=== PATIENT | male | born 1940 | race Caucasian/White ===

== ENCOUNTER → 2018-09-01 | Outpatient (CLI) | payer OTHER ==
[~2018-09-01] MED LIST: IOPAMIDOL (ISOVUE 370) 75 ML BTL IV ONE
== END ==
LOC: FIMAGING 10:10
PROVIDERS: ATTEND Internal Medicine
DX: R42 Dizziness and giddiness (principal)
CPT/HCPCS: 70450; Q9967; 82565-PO

== ENCOUNTER → 2018-09-01 | Outpatient (CLI) | payer OTHER ==
--- NOTE | 2018-09-01 15:59 | ECHO ---
[email or web address] [address] [address] Main: [phone] Fax: Transthoracic Echocardiogram Name: DANII YI MR#: [id number] Study Date: 09/01/2018 Study Time: 01:59 PM Date of : 1940 Age: 78 year(s) Height: 180.3 cm (71 in.) Weight: 83.92 kg (185 lb.) BSA: 2.04 m2 Gender: Male Examination: Echo Indication: Cerebrovascular: prior CVA Image Quality: Contrast: Requested by: Guy Mcfadden BP: 118 mmHg/72 mmHg Heart Rate: Rhythm: Normal sinus rhythm Indication: Cerebrovascular: prior CVA Procedure Staff Digital Cartographer: Lloyd George RDCS Reading Physician: Colton Ruiz MD Requesting Provider: Conclusions: Normal size left ventricle. Global hypercontractility of the left ventricle. EF is 73 %. Grade 1 diastolic dysfunction (abnormal relaxation). The mitral valve is normal in appearance. Trivial mitral valve regurgitation. The aortic valve is tri-leaflet. Mild aortic cusp calcification is noted. There is no significant aortic valve regurgitation. No aortic valve stenosis is present. The pulmonary artery pressure is normal. No old studies for comparison. Measurements: Chambers Valvular Assessment AV/MV Valvular Assessment TV/PV Normal Normal Normal Name Value Range Name Value Range Name Value Range Ao Mouna (MM): 2.8 cm (2.2 cm-3.7 AV Vmax: 1.38 m/s (1 m/s-1.7 TR Vmax: 2.69 mm/s ( - ) cm) m/s) TR PGmax: 29 mmHg ( - ) IVSd (2D): 0.8 cm (0.6 cm-1.1 AV maxP mmHg ( - ) syst. PAP: 34 mmHg ( - ) cm) AV meanP mmHg ( - ) PV Vmax: 1.13 m/s (0.6 m/s-0.9 LVDd (2D): 4.6 cm (4.2 cm-5.9 MARYJANE (VTI): 3.7 cm ( - ) m/s) cm) MV E Vmax: 0.63 m/s ( - ) PV PGmax: 5 mmHg ( - ) LVDs (2D): 2.7 cm (2.1 cm-4 MV A Vmax: 0.81 m/s ( - ) cm) MV E/A: 0.78 ( - ) LVPWd (2D): 0.9 cm (0.6 cm-1 cm) LVOTd 2.1 cm 2.1 cm mm LVEF (2D): 73 (>=54 %) Patient: DANII YI Study Date: 09/01/2018 Page 1 of 2 01:59 PM Continued Measurements: Chambers Valvular Assessment AV/MV Valvular Assessment TV/PV Name Value Name Value Name Value LADs Lon.9 cm MV E' Septal: 0.05 m/s CVP (est.): 5 mmHg LA Area: 12.6 cm2 MV E/E' Septal: 13.20 LA Volume: 34 ml MV E/E' Lateral: 7.90 LA Volume Index: 16.7 ml/m2 Findings: Left Ventricle: Normal size left ventricle. No LV hypertrophy. Global hypercontractility of the left ventricle. EF is 73 %. No regional wall motion abnormality. Grade 1 diastolic dysfunction (abnormal relaxation). Right Ventricle: Normal size right ventricle. Normal RV function. Left Atrium: The left atrium is normal in size. Right Atrium: The right atrium is normal in size. Mitral Valve: The mitral valve is normal in appearance. Trivial mitral valve regurgitation. Aortic Valve: The aortic valve is tri-leaflet. Mild aortic cusp calcification is noted. There is no significant aortic valve regurgitation. No aortic valve stenosis is present. Tricuspid Valve: The tricuspid valve appears normal. Trivial to mild tricuspid valve regurgitation. The pulmonary artery pressure is normal. Pulmonic Valve: The pulmonic valve is normal in appearance. Trivial to mild pulmonic valve regurgitation. Aorta: The aorta is normal. Pericardium: No pericardial effusion. There is pericardial fat. (No Signature Object) Patient: DANII YI Study Date: 09/01/2018 Page 2 of 2 01:59 PM [id number]
== END ==
LOC: FCP 10:07
PROVIDERS: ATTEND Nurse Practitioner Family
DX: I63.9 Cerebral infarction, unspecified (principal); R42 Dizziness and giddiness

== ENCOUNTER → 2018-09-10 | Outpatient (CLI) | payer OTHER | LOC: BHFA 14:30 | PROVIDERS: ATTEND Internal Medicine Cardiovascular Disease | DX: R00.2 Palpitations (principal) ==

== ENCOUNTER → 2018-12-21 | Outpatient (CLI) | payer OTHER | LOC: FIMAGING 06:14 | PROVIDERS: ATTEND Internal Medicine | DX: M48.061 Spinal stenosis, lumbar region without neurogenic claudication (principal); Z98.1 Arthrodesis status ==

== ENCOUNTER 2019-01-01 14:14 | Inpatient (IN) | payer OTHER | END 2019-01-05 12:19 | disposition home health service (06) | LOC: F3N 17:17 ==